=== PATIENT | female | born 2000 | race Two or more races ===

== ENCOUNTER 2024-09-16 22:43 | Inpatient (IN) | payer OTHER ==
[~2024-09-16] VITALS: Ht 165.1 cm; Wt 104.8 kg
[~2024-09-16 22:43] MED LIST: ATABEX DHA 200200 MG; CEPHALEXIN500 M1 PO; LEVOTHYROXINE25 MCG PO; MACROBID 100 M100 MG; ONDANSETRON HCL4 MG PO; VAZALORE81 MG PO
[2024-09-16 23:36] VITALS: BP 136/72
[2024-09-17] MEDS ORDERED: MISOPROSTOL 25 MCG TABLET VAG STA (00:17)
[2024-09-17] MEDS ORDERED: MEPERIDINE HCL/PF 50 MG/ML VIAL IV PRN (01:15)
[2024-09-17] MEDS ORDERED: PROMETHAZINE HCL 25 MG/ML AMPUL IV PRN (01:30)
[2024-09-17] MEDS ORDERED: AMPICILLIN SODIUM 2,000 MG VIAL IV ONE (02:15)
[2024-09-17 03:04] LABS: URINE APPEARANCE Cloudy; URINE BILIRRUBIN Negative (NEGATIVE); URINE BLOOD Negative; URINE COLOR Yellow; URINE GLUCOSE Negative (NEGATIVE); URINE KETONE 15 (NEGATIVE); URINE LEUKOCYTE Negative; URINE NITRATE Negative; URINE PROTEIN 30 (NEGATIVE); URINE UROBILINOGEN 0.2 E.U./dl
[2024-09-17 03:08] LABS: URINE BACTERIA 1063.3 uL (0.0-1933); URINE EPITHELIAL CELLS 80.8 uL (0.0-38.8); URINE RBC 14.5 uL (0.0-20.8); URINE WBC 39.2 uL (0.0-23.2)
[2024-09-17 03:15] LABS: HEMATOCRIT 37.3 % (36.0-45.00); HEMOGLOBIN 12.9 g/dL (12.0-15.00); MEAN CELL VOLUME 84.6 fL (80.00-100.00); MEAN CORPUSCULAR HEMOGLOBIN 29.2 pg (27.00-32.0); MEAN CORPUSCULAR HGB CONC 34.6 g/dl (32.0-36.0); PLATELET COUNT 263 K/uL (150-450); RED BLOOD COUNT 4.41 M/uL (4.00-6.00)
[2024-09-17 03:16] VITALS: BP 112/66
[2024-09-17 03:41] LABS: ALBUMIN 2.9 gm/dL (3.4-5.0); BILIRUBIN TOTAL 0.6 mg/dL (0.3-1.2); CALCIUM 9.6 mg/dL (8.5-10.1); CREATININE SERUM 0.79 mg/dL (0.55-1.02); GLOBULINA 3.3 G/DL (2.4-3.5); POTASSIUM 4.07 mEq/L (3.5-5.1); TOTAL PROTEIN 6.2 gm/dL (6.4-8.2)
[2024-09-17 03:51] LABS: INR 0.96; PARTIAL THROMBOPLASTIN TIME 27.6 SECONDS (22.0-34.0); PROTHROMBIN TIME 10.5 SECONDS (9.0-11.5)
[2024-09-17 05:02] LABS: URINE CRYSTALS MODERATE /HPF
[2024-09-17] MEDS ORDERED: AMPICILLIN SODIUM 1,000 MG VIAL IV SCH (08:00)
[2024-09-17 08:32] VITALS: BP 124/53
[2024-09-17] MEDS ORDERED: MISOPROSTOL 50 MCG TABLET VAG ONE (11:20)
[2024-09-17 11:51] VITALS: BP 104/50
[2024-09-17 15:49] VITALS: BP 132/59
[2024-09-17] MEDS ORDERED: OXYTOCIN 10 UNITS/ML VIAL IV ONE (17:30)
[2024-09-17] MEDS ORDERED: ERYTHROMYCIN BASE OPHT 1GM EACH TUBE OP ONE (17:30)
[2024-09-17] MEDS ORDERED: KETOROLAC TROMETHAMINE 60 MG VIAL IM STA (19:29)
[2024-09-17] MEDS ORDERED: CHLORHEXIDINE GLUCONATE 120 ML BOTTLE TP SCH (19:30)
[2024-09-17] MEDS ORDERED: MEPERIDINE HCL/PF 50 MG/ML VIAL IM PRN (19:30)
[2024-09-17] MEDS ORDERED: PROMETHAZINE HCL 25 MG/ML AMPUL IM PRN (19:30)
[2024-09-17] MEDS ORDERED: OXYTOCIN 1,000 ML IV SCH (19:30)
[2024-09-17] MEDS ORDERED: RINGERS SOLUTION,LACTATED 1,000 ML IV SCH (19:30)
[2024-09-17 22:16] VITALS: BP 124/78
[2024-09-17 23:24] LABS: HEMOGLOBIN 12.4 g/dL (12.0-15.00); MEAN CELL VOLUME 85.5 fL (80.00-100.00); MEAN CORPUSCULAR HEMOGLOBIN 28.6 pg (27.00-32.0); MEAN CORPUSCULAR HGB CONC 33.4 g/dl (32.0-36.0); PLATELET COUNT 254 K/uL (150-450); RED BLOOD COUNT 4.33 M/uL (4.00-6.00); RED CELL DISTRIBUTION WIDTH 14.1 % (11.5-14.5)
[2024-09-18 01:01] VITALS: BP 120/73
[2024-09-18] MEDS ORDERED: OxyCODONE HCL/APAP UD (PERCOCET) PO PRN (09:00)
[2024-09-18 10:14] VITALS: BP 112/72
[2024-09-18 13:59] VITALS: BP 115/76
[2024-09-18 16:19] VITALS: BP 110/56
[2024-09-19 01:29] VITALS: BP 111/71
[2024-09-19 05:24] VITALS: BP 104/67
[2024-09-19] MEDS ORDERED: IBUPROFEN800 MG PO (07:07)
[2024-09-19 13:13] VITALS: BP 131/86
== END 2024-09-19 16:22 | disposition home or self-care (01) | DRG 788 ==
LOC: LDR 22:43 → OB/GYN 09-17 19:11
PROVIDERS: ADMIT Obstetrics & Gynecology; ATTEND Obstetrics & Gynecology
PROC: 3E0P7VZ Introduction of Hormone into Female Reproductive, Via Natural or Artificial Opening (ICD-10-PCS; 2024-09-16)
PROC: 4A1HXCZ Monitoring of Products of Conception, Cardiac Rate, External Approach (ICD-10-PCS; 2024-09-16)
PROC: 3E033VJ Introduction of Other Hormone into Peripheral Vein, Percutaneous Approach (ICD-10-PCS; 2024-09-17)
PROC: 10D00Z1 Extraction of Products of Conception, Low, Open Approach (ICD-10-PCS; principal; 2024-09-17 19:00)
DX: O13.4 Gestational [pregnancy-induced] hypertension without significant proteinuria, complicating childbirth (principal); Z3A.38 38 weeks gestation of pregnancy; Z37.0 Single live birth; Z20.822 Contact with and (suspected) exposure to COVID-19